=== PATIENT | female | born 1960 | race Caucasian/White ===

== ENCOUNTER 2020-02-17 05:55 | Emergency (ER) | payer MEDICARE ==
[~2020-02-17] VITALS: Ht 154.9 cm; Wt 90.7 kg
[2020-02-17] MEDS ORDERED: MORPHINE SULFATE INJ 4 MG/ML DISP.SYRIN ONE (06:27)
[2020-02-17] MEDS ORDERED: ONDANSETRON HCL/PF 4 MG/2 ML VIAL ONE (06:27)
[2020-02-17] MEDS ORDERED: IV NS 0.9% 1,000 ML BAG IV ONE (06:30)
[2020-02-17] MEDS ORDERED: ONDANSETRON HCL/PF 4 MG/2 ML VIAL IVP ONE (06:30)
[2020-02-17] MEDS ORDERED: MORPHINE SULFATE INJ 2 MG/ML DISP.SYRIN IV ONE (06:30)
--- NOTE | 2020-02-17 06:32 | NUR ---
BIBFAMILY FROM HOME TO ER BED 3. AAOX4. CRYING. NOT IN RESP DISTRESS. AMBULATORY. C/O L FLANK PAIN X 2 DAYS. 09/07 [place] THROBBING PAIN. 09/07 DENIES NAUSEA AND VOMITING. URINE COLLECTED. MD WAS AT BEDSIDE FOR EVAL. ORDERS RECEIVED, NOTED AND CARRIED OUT. IV LINE OBTAINED ON RFA 20G. BLOOD DRAWN AND GIVEN TO COURT MANAGER AT BEDSIDE
[2020-02-17 06:35] LABS: BASOPHILS # (AUTO) 0.1 /CMM (0.0-0.2); EOSINOPHILS % (AUTO) 1.4 % (0.0-6.0); HEMATOCRIT 40 % (33-45); HEMOGLOBIN 13.6 g/dL (11.5-14.8); LYMPHOCYTES # (AUTO) 2.9 /CMM (0.8-4.8); LYMPHOCYTES % (AUTO) 41.4 % (20.0-44.0); MEAN CORPUSCULAR HGB CONC 34 g/dl (31.0-36.0); MEAN CORPUSCULAR VOLUME 86 fL (82-100); MONOCYTES # (AUTO) 0.5 /CMM (0.1-1.30); MONOCYTES % (AUTO) 7.7 % (2.0-12.0); NEUTROPHILS # (AUTO) 3.4 /CMM (1.8-8.9); NEUTROPHILS % (AUTO) 48.5 % (43.0-81.0); PLATELET COUNT (AUTO) 294 /CMM (150-450)
[2020-02-17 06:43] LABS: APPEARANCE,URINE CLEAR (CLEAR); BILIRUBIN,URINE NEGATIVE (NEGATIVE); BLOOD, URINE TRACE-INTA Ery/uL (NEGATIVE); COLOR,URINE YELLOW (YELLOW); KETONES,URINE NEGATIVE (NEGATIVE); LEUKOCYTE ESTERASE ,URINE SMALL (NEGATIVE); NITRITE, URINE NEGATIVE (NEGATIVE); PROTEIN,URINE NEGATIVE (NEGATIVE); UGLUCOSE NEGATIVE (NEGATIVE); UROBILINOGEN,URINE 0.2 EU/dL (0.2)
[2020-02-17 06:46] LABS: CALCIUM, SERUM 9.6 mg/dL (8.5-10.1); CREATININE 0.8 mg/dL (0.6-1.3); POTASSIUM 3.7 mmol/L (3.5-5.1)
[2020-02-17 07:01] LABS: RBC,URINE 0-2 /HPF (0-2)
[2020-02-17 07:02] LABS: BACTERIA,URINE None seen /HPF (None Seen); SQUAMOUS EPITHELIAL CELL,UR Few /HPF (None Seen); WBC,URINE 0-2 /HPF (0-3)
[2020-02-17] MEDS ORDERED: KETOROLAC TROMETHAMINE INJ 30 MG/ML VIAL IV ONE (08:00)
[2020-02-17] MEDS ORDERED: KETOROLAC TROMETHAMINE INJ 30 MG/ML VIAL ONE (08:09)
--- NOTE | 2020-02-17 08:50 | NUR ---
A/OX4, AMBULATORY WITH STEADY GAIT, STILL C/O MILD PAIN. PRESCRIPTION PROVIDED. IV removed. Catheter intact and site benign. Pressure and 4x4 applied to site. No bleeding noted.Patient discharged to home in stable condition. Written and verbal after care instructions given. Patient verbalizes understanding of instruction.
[2020-02-17 08:51] VITALS: BP 156/100
== END 2020-02-17 08:51 | disposition home or self-care (01) ==
LOC: ER 06:02
DX: R10.9 Unspecified abdominal pain (principal); I10 Essential (primary) hypertension; E03.9 Hypothyroidism, unspecified; M79.3 Panniculitis, unspecified; K59.00 Constipation, unspecified
CPT/HCPCS: 36415; 74176; 80048; 81001; 83690; 85025; 87086; 96374; 96375; 99284; J1885; J2270; J2405; J7030; 81000-TC

== ENCOUNTER 2020-02-17 19:17 | Emergency (ER) | payer MEDICARE ==
[~2020-02-17] VITALS: Ht 185.4 cm; Wt 90.7 kg
--- NOTE | 2020-02-17 19:33 | NUR ---
BIBFAMIGAGAN FROM HOME, TO ER BED 1. AAOX4. NOT IN RESP DISTRESS. C/O L FLANK PAIN X2 DAYS. PT WAS HERE THIS MORNING FOR THE SAME REASON AND WAS GIVEN PRESCRIPTION FOR MEDICATION BUT INEEFECTIVE. PT RATES HER PAIN 8/10 SHARP ACHING. PT DENIES DYSURIA, NO REPORTED HEMATURIA, AFEBRILE. MD WAS AT BEDSIDE FOR EVAL. ORDERS RECEIVED NOTED AND CARRIED OUT.
--- NOTE | 2020-02-17 19:54 | NUR ---
XRAY WAS AT BEDSIDE
[2020-02-17] MEDS ORDERED: DIAZEPAM 5 MG TABLET ONE (19:56)
[2020-02-17] MEDS ORDERED: DIAZEPAM 5 MG TABLET PO ONE (20:00)
[2020-02-17] MEDS ORDERED: ONDANSETRON HCL/PF 4 MG/2 ML VIAL IVP ONE (20:30)
[2020-02-17] MEDS ORDERED: MORPHINE SULFATE INJ 2 MG/ML DISP.SYRIN IV ONE (20:30)
[2020-02-17] MEDS ORDERED: IOHEXOL-300 100 ML VIAL IV ONE (20:43)
[2020-02-17] MEDS ORDERED: CT SWABBABLE VALVE TRANS SET 1 EA INFUS.SET MC ONE (20:43)
[2020-02-17] MEDS ORDERED: IV NS 0.9% 250 ML IV ONE (20:43)
[2020-02-17] MEDS ORDERED: MORPHINE SULFATE INJ 4 MG/ML DISP.SYRIN ONE (20:49)
[2020-02-17] MEDS ORDERED: ONDANSETRON HCL/PF 4 MG/2 ML VIAL ONE ×2 (20:49→21:33)
--- NOTE | 2020-02-17 21:24 | NUR ---
TO CT ON BRIG[place]
[2020-02-17] MEDS ORDERED: ONDANSETRON HCL/PF - ER 4 MG/2 ML VIAL IV ONE (22:00)
--- NOTE | 2020-02-17 22:54 | NUR ---
Patient discharged to home in stable condition. Written and verbal after care instructions given. Patient verbalizes understanding of instruction.IV removed. Catheter intact and site benign. Pressure and 4x4 applied to site. No bleeding noted. Pt ambulatory with a steady gait
[2020-02-17 23:17] VITALS: BP 88/161
== END 2020-02-17 23:10 | disposition home or self-care (01) ==
LOC: ER 19:19
DX: M54.6 Pain in thoracic spine (principal); I10 Essential (primary) hypertension; E03.9 Hypothyroidism, unspecified; I88.0 Nonspecific mesenteric lymphadenitis; K59.00 Constipation, unspecified; E66.9 Obesity, unspecified; Z68.26 Body mass index [BMI] 26.0-26.9, adult
CPT/HCPCS: 71045; 71260; 93005; 96374; 96375; 96376; 99285; J2270; J2405 ×3; J7050; Q9967